=== PATIENT | female | born 1985 | race Caucasian/White ===

== ENCOUNTER 2020-03-13 10:29 | Outpatient (REF) | payer OTHER, SELFPAY ==
--- NOTE | 2020-03-13 10:37 | XR_ITS ---
EXAMINATION: XR SINUSES CLINICAL INFORMATION: Sinus pressure. COMPARISON: None. TECHNIQUE: 4 views of the sinuses were obtained. FINDINGS: The visualized paranasal sinuses and mastoid air cells appear clear. No associated air-fluid level. No lytic or blastic osseous lesion. No displaced fracture. No abnormal soft tissue calcification. XR/XR sinus min 3V IMPRESSION: Unremarkable examination.
== END 2020-03-13 10:30 | disposition home or self-care (01) ==
LOC: HO.XRAY 10:29
PROVIDERS: PCP Internal Medicine; Visit Provider Internal Medicine
DX: R51.9 Headache, unspecified (principal); J32.9 Chronic sinusitis, unspecified
CPT/HCPCS: 70220

== ENCOUNTER 2020-05-02 15:48 | Outpatient (REF) | payer OTHER, SELFPAY ==
[2020-05-02 16:20] LABS: MANUAL DIFF FLAG NO
[2020-05-02 16:27] LABS: Basophils Percent Auto 0.4 % (0-2); Eosinophils Absolute Auto 0.3 X10*3/uL (0.0-0.4); Eosinophils Percent Auto 3.8 % (0-4); Hematocrit 40.9 % (37-47); Imm Gran Abs Auto 0.01 X10*3/uL (0.00-0.03); Imm Gran Pct Auto 0.1 % (0.0-0.4); Lymphocytes Absolute Auto 2.7 X10*3/uL (1.2-4.9); Lymphocytes Percent Auto 34.8 % (20-40); Mean Corpuscular HGB Conc 34.2 g/dl (31.0-35.0); Mean Corpuscular Volume 90.7 fL (80-98); Mean Platelet Volume 10.6 fL (9.4-12.3); Monocytes Absolute Auto 0.5 X10*3/uL (0.1-1.2); Monocytes Percent Auto 6.1 % (2-11); Neutrophils Absolute Auto 4.2 X10*3/uL (2.0-8.3); Neutrophils Percent Auto 54.8 % (45-73); Platelet Count 279 X10*3/uL (160-400); Red Blood Count 4.51 X10*6/uL (4.20-5.50); Red Cell Distribution Width 12.8 % (11.0-16.0); White Blood Count 7.7 X10*3/uL (4.8-10.8)
[2020-05-02 16:56] LABS: Anion Gap 13 (12-20); Blood Urea Nitrogen 15 mg/dL (9-16); Calcium 10.2 mg/dL (8.4-10.2); Carbon Dioxide 24 mmol/L (22-29); Chloride 106 mmol/L (96-108); Cholesterol 169 mg/dL; Estimated Glomerular Filt Rate > 60; Glucose Random 81 mg/dL (60-115); Potassium 4.1 mmol/L (3.3-5.1); Sodium 139 mmol/L (135-145)
[2020-05-02 17:19] LABS: Vitamin D 25-OH Total 25.4 ng/mL (>30)
[2020-05-05 15:16] LABS: TS Negative Control Passed; TS Panel A 0; TS Panel B 2; TS Positive Control Passed; TSpotTB Negative (SeeBelow)
== END 2020-05-02 15:49 | disposition home or self-care (01) ==
LOC: HO.LAB 15:48
PROVIDERS: PCP Internal Medicine; Visit Provider Internal Medicine
DX: J45.909 Unspecified asthma, uncomplicated (principal); M85.80 Other specified disorders of bone density and structure, unspecified site; Z82.49 Family history of ischemic heart disease and other diseases of the circulatory system
CPT/HCPCS: 36415; 80048; 82306; 82465; 85025; 86481

== ENCOUNTER 2020-12-04 14:00 | Outpatient (REF) | payer OTHER, SELFPAY ==
[2020-12-04 14:14] LABS: IDNOW Serial# 08D9AD1C; Strep A Nucleic Acid Negative (Negative)
[2020-12-04 14:44] LABS: Influenza A PCR NEGATIVE (Negative); Influenza B PCR NEGATIVE (Negative); Resp Syncy Virus RNA Qual PCR NEGATIVE (Negative); SARS COV2 PCR INHOUSE NEGATIVE (Negative)
== END 2020-12-04 14:01 | disposition home or self-care (01) ==
LOC: HO.LNP 14:00
PROVIDERS: Visit Provider Internal Medicine
DX: J00 Acute nasopharyngitis [common cold] (principal); R51.9 Headache, unspecified; R19.7 Diarrhea, unspecified; Z20.822 Contact with and (suspected) exposure to COVID-19
CPT/HCPCS: 0241U; 87651

== ENCOUNTER 2021-05-06 12:20 | Outpatient (REF) | payer OTHER, SELFPAY ==
[2021-05-06 13:29] LABS: Influenza A PCR NEGATIVE (Negative); Influenza B PCR NEGATIVE (Negative); Resp Syncy Virus RNA Qual PCR NEGATIVE (Negative); SARS COV2 PCR INHOUSE NEGATIVE (Negative)
== END 2021-05-06 12:21 | disposition home or self-care (01) ==
LOC: HO.LNP 12:20
PROVIDERS: PCP Internal Medicine; Visit Provider Internal Medicine
DX: Z20.822 Contact with and (suspected) exposure to COVID-19 (principal); R05.9 Cough, unspecified; J45.909 Unspecified asthma, uncomplicated
CPT/HCPCS: 0241U

== ENCOUNTER 2021-07-24 08:10 | Outpatient (REF) | payer OTHER, SELFPAY ==
[2021-07-24 10:23] LABS: MANUAL DIFF FLAG NO
[2021-07-24 10:27] LABS: Basophils Percent Auto 0.4 % (0-2); Eosinophils Absolute Auto 0.3 X10*3/uL (0.0-0.4); Eosinophils Percent Auto 5.8 % (0-4); Hematocrit 38.8 % (37.0-47.0); Imm Gran Abs Auto 0.01 X10*3/uL (0.00-0.03); Imm Gran Pct Auto 0.2 % (0.0-0.4); Lymphocytes Absolute Auto 1.9 X10*3/uL (1.2-4.9); Lymphocytes Percent Auto 34.2 % (20-40); Mean Corpuscular HGB Conc 33.5 g/dl (31.0-35.0); Mean Corpuscular Hemoglobin 30.4 pg (27.0-33.0); Mean Corpuscular Volume 90.9 fL (80.0-98.0); Mean Platelet Volume 10.7 fL (9.4-12.3); Monocytes Absolute Auto 0.4 X10*3/uL (0.1-1.2); Neutrophils Percent Auto 52.4 % (45-73); Platelet Count 247 X10*3/uL (160-400); Red Blood Count 4.27 X10*6/uL (4.20-5.50); Red Cell Distribution Width 12.6 % (11.0-16.0); White Blood Count 5.7 X10*3/uL (4.8-10.8)
[2021-07-24 10:56] LABS: Anion Gap 9 (12-20); Blood Urea Nitrogen 12 mg/dL (9-16); Calcium 9.9 mg/dL (8.4-10.2); Carbon Dioxide 25 mmol/L (22-29); Chloride 109 mmol/L (96-108); Estimated Glomerular Filt Rate > 60; Glucose Random 85 mg/dL (60-115); Potassium 4.4 mmol/L (3.3-5.1); Sodium 139 mmol/L (135-145)
[2021-07-24 11:11] LABS: Vitamin D 25-OH Total 25.4 ng/mL (>30)
== END 2021-07-24 08:11 | disposition home or self-care (01) ==
LOC: HO.10HDL 08:10
PROVIDERS: Visit Provider Internal Medicine
DX: G43.909 Migraine, unspecified, not intractable, without status migrainosus (principal); J45.909 Unspecified asthma, uncomplicated; E55.9 Vitamin D deficiency, unspecified
CPT/HCPCS: 36415; 80048; 82306; 85025

== ENCOUNTER 2022-10-10 15:14 | Outpatient (REF) | payer OTHER, SELFPAY ==
--- NOTE | ~2022-10-10 | XR_ITS ---
EXAMINATION: XR SINUSES CLINICAL INFORMATION: Sinus pain and congestion COMPARISON: None available. TECHNIQUE: 4 views FINDINGS: Paranasal sinuses appear clear without air-fluid levels. No fractures are identified. No radiodense foreign bodies. XR/XR sinus min 3V IMPRESSION: Unremarkable examination.
== END 2022-10-10 15:15 | disposition home or self-care (01) ==
LOC: HO.XRAY 15:14
PROVIDERS: PCP Internal Medicine; Visit Provider Internal Medicine
DX: R09.81 Nasal congestion (principal); J34.89 Other specified disorders of nose and nasal sinuses; J45.909 Unspecified asthma, uncomplicated
CPT/HCPCS: 70220

== ENCOUNTER 2023-09-23 12:11 | Outpatient (REF) | payer OTHER, SELFPAY ==
[2023-09-23 13:21] LABS: MANUAL DIFF FLAG NO
[2023-09-23 13:47] LABS: Basophils Percent Auto 0.4 % (0-2); Eosinophils Absolute Auto 0.3 X10*3/uL (0.0-0.4); Eosinophils Percent Auto 4.1 % (0-4); Hematocrit 39.2 % (37.0-47.0); Hemoglobin 13.5 g/dl (12.0-16.0); Imm Gran Abs Auto 0.01 X10*3/uL (0.00-0.03); Imm Gran Pct Auto 0.1 % (0.0-0.4); Lymphocytes Absolute Auto 2.2 X10*3/uL (1.2-4.9); Mean Corpuscular HGB Conc 34.4 g/dl (31.0-35.0); Mean Corpuscular Hemoglobin 30.7 pg (27.0-33.0); Mean Corpuscular Volume 89.1 fL (80.0-98.0); Mean Platelet Volume 10.2 fL (9.4-12.3); Monocytes Absolute Auto 0.5 X10*3/uL (0.1-1.2); Monocytes Percent Auto 7.4 % (2-11); Neutrophils Absolute Auto 3.7 x10*3/uL (2.0-8.3); Platelet Count 258 X10*3/uL (160-400); Red Cell Distribution Width 12.7 % (11.0-16.0); White Blood Count 6.8 X10*3/uL (4.8-10.8)
[2023-09-23 13:50] LABS: Alanine Aminotransferase 9 U/L (0-31); Albumin Level 4.5 g/dL (3.5-5.0); Alkaline Phosphatase 41 U/L (39-117); Anion Gap 10 (12-20); Aspartate Amino Transferase 13 U/L (5-31); Bilirubin Total 0.7 mg/dL (0.0-1.0); Blood Urea Nitrogen 12 mg/dL (9-16); Calcium 9.6 mg/dL (8.4-10.2); Carbon Dioxide 25 mmol/L (22-29); Chloride 108 mmol/L (96-108); Estimated Glomerular Filt Rate > 60; Glucose Random 89 mg/dL (60-115); Potassium 4.5 mmol/L (3.3-5.1); Sodium 138 mmol/L (135-145); Total Protein 7.8 g/dL (6.5-8.0)
[2023-09-23 14:18] LABS: Uric Acid 2.9 mg/dL (2.4-5.7)
== END 2023-09-23 12:12 | disposition home or self-care (01) ==
LOC: HO.10HDL 12:11
PROVIDERS: Visit Provider Internal Medicine
DX: J45.909 Unspecified asthma, uncomplicated (principal); R21 Rash and other nonspecific skin eruption; Z87.442 Personal history of urinary calculi
CPT/HCPCS: 36415; 80053; 84550; 85025; 86140

== ENCOUNTER 2023-12-16 14:07 | Outpatient (REF) | payer OTHER, SELFPAY ==
--- NOTE | ~2023-12-16 | XR_ITS ---
EXAMINATION: XR CHEST CLINICAL INFORMATION: Cough. Asthma. COMPARISON: None available. TECHNIQUE: 2 views of the chest were obtained. FINDINGS: Lungs clear. No pleural effusions. Heart and pulmonary vessels normal. XR/XR chest 2V IMPRESSION: No active disease. Electronically signed by: Nba Moyer MD 12/16/2023 05:39 PM [facility]
[2023-12-16 15:05] LABS: Influenza A PCR NEGATIVE (Negative); Influenza B PCR NEGATIVE (Negative); Resp Syncy Virus RNA Qual PCR NEGATIVE (Negative); SARS COV2 PCR INHOUSE NEGATIVE (Negative)
== END 2023-12-16 14:08 | disposition home or self-care (01) ==
LOC: HO.XRAY 14:07
PROVIDERS: PCP Internal Medicine; Visit Provider Internal Medicine
DX: R05.9 Cough, unspecified (principal); J45.909 Unspecified asthma, uncomplicated; R50.9 Fever, unspecified
CPT/HCPCS: 0241U; 71046

== ENCOUNTER 2024-06-08 08:18 | Outpatient (AMB) | payer OTHER, SELFPAY ==
--- NOTE | 2024-06-08 08:25 | MHC.OFFVIS ---
Vital Signs 06/08/24 08:27 Height 5 ft 6 in Weight 139 lb BMI 22.4 Intake Visit Reasons: PCT: RT thumb sprain DOI 10/24/23 Intake Note: Ashley is a 39 year old right hand dominant female who resents today for a new patient for evaluation of right thumb pain. Patient reports she was playing basketball with her son on 10/24/23 when she injured the right thumb. Patient was treated at [facility] for this non operatively. MRI done at [facility]. She completed 6 weeks of casting in a thumb spica cast and was transitioned into a removable splint then referred to occupational therapy. Currently her tenderness is located on the right radial aspect. No numbness or tingling. She has completed OT. MR HAND WITHOUT CONTRAST RIGHT DOS: 11/09/2023 IMPRESSION: High-grade partial tear at the proximal radial collateral ligament at the first MP articulation. There is also attenuation of the ulnar collateral ligament consistent with the sequela of prior tear, age indeterminant. Allergies aspirin Allergy (Unknown, Verified 06/08/24 08:28) swelling penicillin V Allergy (Unknown, Verified 06/08/24 08:28) rash seafood Allergy (Unknown, Uncoded 06/08/24 08:28) rash, swelling HPI HPI PCT: RT thumb sprain DOI 10/24/23: Details: Ashley is a 39 year old right hand dominant woman who presents with complaints of right thumb pain. She sprained her right thumb MCP joint playing Basketball, DOI: 10/24/23. This was managed at [facility] with a cast and several weeks of OT hand therapy. She complains of pain in the radial aspect of her thumb, worse with repetitive use. She also complains of swelling in her thumb with use. 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, right hand dominant Review of Systems Const All systems reviewed & are unremarkable except as noted in HPI and below Physical Exam Vital Signs: BMI result Body Mass Index 22.4 Const General: cooperative, healthy appearing and no acute distress Orientation/consciousness: patient oriented x3 HEENT Head: Yes normocephalic and Yes atraumatic Eyes EOM: EOMs intact bilaterally Resp Effort & Inspection: normal respiratory effort and able to speak in complete sentences Cardio Jugular venous distension: no JVD Skin General skin exam: turgor normal Rashes: no rashes Neuro General: patient oriented x3 Extrem Other: Evaluation of Right Upper Extremity: The patient is alert, oriented, and in no acute distress Neuro: Median, Ulnar, Radial nerves motor and sensory intact and sensation is normal to the tips of all digits Vascular: Cap refill brisk ROM: She can make a fist and extend all her digits She could oppose her thumb to all digits MCP joint stable on exam UCL & RCL of the MCP joint are intact, with good end points Similar to opposite, uninjured thumb Skin: No lacerations or abrasions. General: No Ecchymosis. No Erythema or evidence of infection. She demonstrates her tenderness over the radial aspect of the metacarpal, extending over the MCP joint and to the IP joint & radial aspect of the thenar mass Radiographs: 3 views of the right hand were taken and viewed by me today in clinic. They show no fractures or dislocations. Regarding the thumb, the CMC, MCP, and IP joints all well-aligned, with no arthritic changes. Psych Appearance: grossly normal Affect: normal affect Attitude: cooperative Assessment & Plan Assessment & Plan (1) Rupture of radial collateral ligament of right thumb: Code(s): S63.641A - Sprain of metacarpophalangeal joint of right thumb, initial encounter Category: Medical (2) Pain of right thumb: Code(s): M79.644 - Pain in right finger(s) Category: Medical Plan Assessment & Plan: 1. Right RCL partial tear From a Basketball injury, DOI: 10/24/23 Managed by AMY, who recommended surgery, which she declined & this was managed in a cast She has good ROM & no instability 2. Right radial thumb pain Etiology unclear I educated her about these conditions I discussed non-operative treatment options No operative intervention indicated, I recommend OT hand therapy & activity modification I discussed activity modifications, I recommend she work on ROM & using her hand for more lightweight daily activities I ordered OT hand therapy to work on strengthening & normalizing function She will follow up in 6-8 weeks to see how she is doing. Please note that greater than 30 minutes was spent with this patient going over the history, evaluating the patient and radiographs, formulating possible treatment options, discussing them with the patient, and documenting the visit. Scribed for Carmela Gerard MD by Paulo Ramírez, bacteriologist medical, on 06/08/24 at 8:45 AM, EST. Orders: Orders XR hand RT min 3V 06/08/24 M79.641 - Pain in right hand OT Evaluation and Treatment 06/08/24 M79.644 - Pain in right finger(s), S63.641A - Sprain of metacarpophalangeal joint of right thumb, initial encounter Coding Level of Care Code New Pt Level 3 (29363) Diagnoses Rupture of radial collateral ligament of right thumb S63.641A Pain of right thumb M79.644
[2024-06-08 08:27] VITALS: BMI 22.4
--- OUTSIDE RECORDS SUMMARY | 2024-06-08 08:31 | XMS_ITS | Data Portability ---
Author Organization [facility], [facility] Address [address] [place] [address] Care Team Providers Care Lead Pharmacy Technician Name Role Phone VICTORIANOYUMIKO GALLARDO Primary Care Provider [phone] Assessment Encounter Date Assessment Date Assessment LastModified by Organization Details LastModified Time 11/02/2023 11/02/2023 Assessment: Righ t thumb MCP joint acute injury with concern for radial collateral ligament injury on clinical exam Plan: MRI is ordered to confirm diagnosis of radial collateral ligament injury. Thumb spica splint is applied by myself in the cast room today. Follow-up will be scheduled after the MRIs been performed so we can review the results together. gilberto Not available 11/02/2023 21:27:40 11/11/2023 11/11/2023 Assessment: Righ t thumb MCP joint acute injury with concern for radial collateral ligament injury on clinical exam, confirmed to be a high-grade partial injury on MRI Plan: I had a long discussion with the patient today regarding the findings on her exam and her imaging and her treatment options for this problem. Her preference is to avoid surgical treatment and therefore, she will be treated in a cast. She does understand that if after cast treatment and rehab, she has continued challenges with pain or instability, a subsequent surgery could be performed which would be a reconstructive seizure with an internal brace as opposed to a primary repair. We have discussed the treatment options thoroughly and she has elected to proceed with cast treatment. Thumb spica cast hand-based to the base of the thumbnail will be applied in the [place] cast room. Follow-up as scheduled with me in 1 month but she may need interval cast changes. gilberto Not available 11/11/2023 12:37:28 12/23/2023 12/23/2023 Assessment: Dianne calixto thumb MCP joint sprain Plan: She has now completed 6 weeks of casting. She will be transition into a removable splint. She is provided an OT prescription for rehab protocol range of motion and then progressive strengthening when appropriate. Follow-up as scheduled with me in about 6 weeks. gilberto Not available 12/23/2023 12:15:16 02/05/2024 02/05/2024 Assessment: Dianne calixto thumb MCP joint sprain, RCL sprain with endpoint on exam Plan: She is provided an updated OT prescription for rehab protocol range of motion, wean out of splint and then progressive strengthening when appropriate. Follow-up as scheduled with me in about 6 weeks. We have briefly discussed the possibility of the surgical procedure that could be performed in the future if she continues to have challenges with pain, however I would be surprised if this is required based on her clinical and radiographic examinations. gilberto Not available 02/05/2024 09:43:16 Plan of Treatment Reminders Order Date Submit Date Provider Last Modified By Organization Details Last Modified Time Details Appointments None recorded. Lab None recorded. Referral occupatio nal therapist referral - DIAGNOSIS : sprain thumb, metacarpo phalangea l joint, radial collatera l ligament ( RIGHT SIDE ) TREATMENT : DAIN OFF SPLINT, BEGIN STREGTHEN ING 2023 lester [facility] - [place] [address] [address], [address], [place], [address], 5 15:55:37 occupatio nal therapist referral - RIGHT THUMB MCP SPRAIN/ CUSTOM HAND BASED THUMB SPICA ORTHOSIS 2023 024 lester Not available 09:17:53 Procedures None recorded. Surgeries None recorded. Imaging XR, finger(s) , 2 or more view - pt in room 5 pt needs 3 views right thumb 2023 lester Dan, [address], [address], [place], [address], 4 07:56:13 MRI, finger(s) , w/o contrast - mri right thumb no contrast to eval rcl injury 2023 024 [email or web address] [facility] [place], [address] [facility] [address], [place], [address], 07:56:13 Medication Orders None recorded. Patient TargetsNo targets recorded. Patient Instructions Encounter Date Encounter Id Patient Instructions Last Modified By Organization Details Last Modified Time 11/02/2023 [id number] application of splint, short arm* - short arm thumb spica splint rt [email or web address] Not available 12/03/2023 08:05:54 12/23/2023 [id number] application of cast, thumb spica* - RIGHT THUMB THUMB SPICA SPLINT [email or web address] Not available 12/23/2023 12:11:16 cast removal* - rm 114 cast off [email or web address] Not available 12/23/2023 12:11:16 Reason for Referral Occupational Therapist Refer ral for Sprain of ligament of right thumb RIGHT THUMB MCP SPRAIN/ CUSTOM HAND BASED THUMB SPICA ORTHOSIS Referring Physician: Alycia Oh, Orthopedic Surgery, Encounter Date: 12/23/2023 Occupational Therapist Refer ral for Sprain thumb, metacarpophalangeal joint, radial collateral ligament DIAGNOSIS: sprain thumb, metacarpophalangeal joint, radial collateral ligament ( RIGHT SIDE ) TREATMENT: DAIN OFF SPLINT, BEGIN STREGTHENING Referring Physician: Alycia Oh, Orthopedic Surgery, Encounter Date: 02/05/2024 Results Created Date Observation Date Name Description Value Unit Range Abnormal Flag Note LastModifiedBy Organization Detail LastModifiedTime 11/02/19 24 11/02/2023 XR, finge r(s), 2 or more view [email or web address]:/ [email or web address] ?Encry pted=s hAaTro YD8dLq bEUv6g %2BXZw aYqtaq 0bqfl% 2Fg9IQ a4ajBk vP9nXo QUaueC m3YtLR FvZlgJ JJ8mAn HZtai3 3m3263 AC0Kqa nqHV6K hKiQtr MwF INTERFACE [facility] [address], [place], [address], 11/02/2023 09:30:57 11/02/19 24 11/02/2023 XR, finge r(s), 2 or more view [email or web address] ?Encry pted=s hAaTro YD8dLq bEUv6g %2BXZw aYqtaq 0bqfl% 2Fg9IQ a4ajBk vP9nXo QUaueC m3YtLR FvZlgJ JJ8mAn HZtai3 3h1528 AC0Kqa nqHV6K hKiQtr MwF INTERFACE [facility] [address], [place], [address], 11/02/2023 09:31:01 11/10/19 24 11/09/2023 MRI, hand, w/o contr ast No observ ation record ed. [email or web address] [facility] [place] [address] [facility] [address], [place], [address], 11/10/2023 14:17:44 Result Notes None recorded. Procedures Surgical History Date Name Laterality Status Provider Name and Address Organization Details Recorded Time 11/11/2023 Cast_Thumb Spica_11+ completed TIERA TAM [place] [facility] 11/11/2023 13:20:53 Imaging Results Imaging Date Name Status LastModified by Organiz ation Details LastModified Time 11/02/2023 XR, finger(s), 2 or more view completed INTERFACE [facility] [address], [place], [address], 11/02/2023 09:30:57 11/02/2023 XR, finger(s), 2 or more view completed INTERFACE [facility] [address], [place], [address], 11/02/2023 09:31:01 11/09/2023 MRI, hand, w/o contrast completed [email or web address] [facility] [place] [address] [facility] [address], [place], [address], 11/10/2023 14:17:44 Procedure Notes None recorded. Medical Equipment None Reported. Allergies Allergen ID Allergen Name Allergen Category Reaction Reaction Severity Criticality Documentation Date Start Date Code Code System Note Provider Name and Address Organization Details Recorded Time 784658 aspirin medicatio n swelling Not available Not available 02/05/2024 1191 RxNorm ashli chano noyola [facility] 4 09:26:03 [id number] Penicilli n Not available rash Not available Not available 02/05/2024 11819 RxNorm ashli chano noyola [facility] 4 09:26:03 Medications Name Sig Start Date Stop Date Status Note LastModified by Organization Details LastModified Time prednisone 10 mg tablet PLEASE SEE ATTACHED FOR DETAILED DIRECTION S active Not Available Not Available No t Available clindamycin HCl 300 mg capsule TAKE 1 CAPSULE BY MOUTH TWICE A DAY FOR 10 DAYS 11/10 completed Not Available Not Available Not Available albuterol sulfate 2.5 mg/3 mL (0.083 %) solution for nebulizatio n TAKE 1 VIAL USING NEBULIZER BY MOUTH EVERY 4-6 HOURS active Not Available Not Available No t Available azithromyci n 250 mg tablet TAKE 1 TABLET BY MOUTH EVERY DAY active Not Available Not Available No t Available prednisone 20 mg tablet TAKE 1 TABLET BY MOUTH EVERY DAY active Not Available Not Available No t Available meloxicam 7.5 mg tablet TAKE 1 TABLET BY MOUTH EVERY DAY active Not Available Not Available No t Available lidocaine 5 % topical patch APPLY 1 PATCH TOPICALLY OCNE DAILY PER PACKAGE DIRECTION S active Not Available Not Available No t Available Advair Diskus 250 mcg-50 mcg/dose powder for inhalation INHALE 1 PUFF(S) BY MOUTH TWICE A DAY active Not Available Not Available No t Available ibuprofen 600 mg tablet TAKE 1 TABLET BY MOUTH EVERY 6 HOURS FOR 5 DAYS active Not Available Not Available No t Available levonorgest rel 0.15 mg-ethinyl estradiol 30 mcg tablets,3 mos pack(91) TAKE 1 TABLET BY MOUTH DAILY active Not Available Not Available No t Available EC-Naproxen 500 mg tablet,patsy yed release TAKE 1 TABLET BY MOUTH TWICE A DAY active Not Available Not Available No t Available Vitals Date Recorded Body height Body mass index (BMI) Body weight Provider Name and Address Organization Details Last Updated DateTime 11/02/2023 167.64 cm 22.3 kg/m2 69272.75 g JAMIE SHELTON [facility] 11/02/2023 09:25:18 Date Recorded Body height Body mass index (BMI) Body weight Provider Name and Address Organization Details Last Updated DateTime 11/11/2023 167.64 cm 22.3 kg/m2 70774.75 g Kaylyn tony [facility] 11/11/2023 11:46:29 Date Recorded Body height Body mass index (BMI) Body weight Provider Name and Address Organization Details Last Updated DateTime 12/23/2023 167.64 cm 22.3 kg/m2 45269.75 g MONIQUE MOODY [facility] 12/23/2023 11:32:09 Date Recorded Body height Body mass index (BMI) Body weight Provider Name and Address Organization Details Last Updated DateTime 02/05/2024 165.1 cm 23 kg/m2 85537.75 g ashli madden [facility] 02/05/2024 09:24:22 Social History None recorded. Functional Status None recorded. Mental Status None recorded. Family History Nothing Reported. Medical History No medical history recorded. Gynecological HistoryNo gynecological history recorded. Obstetrics History GPAL:G 0 P 0 0 0 0 Past Encounters Encounter ID Performer Location Encounter Start Date Encounter Closed Date Diagnosis/Indication Diagnosis SNOMED-CT Code Diagnosis ICD10 Code Diagnosis Note [id number] Alycia cannon MD [address] [place] [address] 11/02/2023 09:10:44 11/12/2023 07:56:12 Pain in right hand 3011513864 98468 M79.641 Sprain peace mccormick, metacarpophalangeal joint, radial collateral ligament 615697439 S63.641A [id number] Alycia cannon MD [facility] [address] [place] [address] 11/11/2023 11:11:43 11/26/2023 15:42:37 Pain in right hand [id number] [facility] M79.641 Sprain peace mb, metacarpophalangeal joint, radial collateral ligament 639869830 S63.641A [id number] [facility] [address] [place] [address] 11/11/2023 13:05:49 11/11/2023 13:22:08 Pain in right hand 6152625200 [facility] M79.172 [id number] MD Kamar Stewart[facility]vin [address] [place] [address] 12/23/2023 10:59:42 01/12/2024 09:17:52 Pain in right hand 1224207140 [facility] M79.641 Sprain peace mb, metacarpophalangeal joint, radial collateral ligament 336443980 S63.641A Sprain of ligament of right thumb 2877904826 1808791 S63.681A [id number] Alycia cannon MD [facility] [address] [place] [address] 02/05/2024 09:16:27 02/24/2024 15:55:37 Pain in right hand 9729970994 26950 M79.641 Sprain peace mb, metacarpophalangeal joint, radial collateral ligament 550430348 S63.641A Sprain of ligament of right thumb 5927689586 6735462 S63.681A Health Concerns Section Related Observation LastModified by Organization Detai ls LastModified Time None Recorded Concern Status LastModified by Organization Details LastModified Time None Recorded Advance Directives Directive None Recorded Payers Encounter Date Sequence Insurance Name Policy Number Policy Fair Covered Member ID Fair Member ID Guarantor Name 11/02/2023 1 [facility] NET PLAN (MEDICAID HMO) [id number] Ashley Plata [id number] Ashley Plata 11/11/2023 1 [facility] NET PLAN (MEDICAID HMO) [id number] Ashley Plata [id number] Ashley Plata 11/11/2023 1 [facility] NET PLAN (MEDICAID HMO) [id number] Ashley Plata [id number] Ashley Plata 12/23/2023 1 [facility] PL[facility] (MEDICAID HMO) [id number] Ashley Plata [id number] Ashley Plata 02/05/2024 1 [facility] (MEDICAID HMO) [id number] Ashley Plata [id number] Ashley Plata Notes Date Note Type Note Provider Name and Address Organization Details Recorded Time 11/02/2023 text/html 38 yo female seen for initial eval of R thumb pain, she sustained an injury to the right thumb while playing basketball with her teenage son on 10/24/2023. X-rays were done at an outside facility which were read as negative. She was not placed in a splint. She has had swelling and bruising and pain in the right thumb since the injury occurred. Alycia Oh MD [address] [facility], [place], [address], [facility] 11/02/2023 21:28:29 11/11/2023 text/html 38 yo female seen for f/u eval of R thumb pain, she sustained an injury to the right thumb while playing basketball with her teenage son on 10/24/2023. X-rays were done at an outside facility which were read as negative. She is seen today to review the results of MRI performed to assess for collateral lig injury. She reports that the splint that I applied for her last week, gave her some pain control but that that splint was thrown away when she presented for her MRI. Alycia Oh MD [address], [place], [address], [facility] 11/11/2023 12:37:50 12/23/2023 text/html 38 yo female seen for f/u eval of R thumb pain, she sustained an injury to the right thumb while playing basketball with her teenage son on 10/24/2023. X-rays were done at an outside facility which were read as negative. She has now completed 6 weeks of casting. Alycia Oh MD [address], [place], [address], [facility] 12/23/2023 12:15:37 02/05/2024 text/html 38 yo female seen for f/u eval of R thumb pain, she sustained an injury to the right thumb while playing basketball with her teenage son on 10/24/2023. X-rays were done at an outside facility which were read as negative. She completed 6 weeks of casting. Is now in a custom splint, going to OT once weekly, still having some challenges with pain. She has been taking the splint off a little bit when she is home. Indicates that the pain is similar whether she is wearing the splint or not. She started therapy about 4 weeks ago and has been going 1-2 times per week. They have not yet started strengthening. Alycia Oh MD [address] [place] [address] [address], [place], [address], [facility] 02/05/2024 10:23:17 OBGyn Episode No OBEpisode recorded.
--- OUTSIDE RECORDS SUMMARY | 2024-06-08 08:31 | XMS_ITS | Clinical Summary ---
Author Organization [facility] Address [address] [place] [address] Care Team Providers Care Cray Fishing Hand Name Role Phone Rodolfo Alexandra MD Primary Care Provider [phone] Surgical History Surgery Date Site/Laterality Comments SECTION PROCEDURE: HISTORICAL DELIVERY Medical History Medical History Date Comments MRSA infection 2008 DX:MRSA infectio n; COMMENT: breast left Migraine headache without aura D X:Migraine headache without aura Family History Medical History Relation Name Comments No Known Problems Brother x2 Arthritis Mother Other: Cancer of reproductiv e organs Mother pt not sure of origi n of cancer No Known Problems Paternal Grandfather Other: Heart Attack Paternal Grandmother No Known Problems Sister x3 Other: autism Son Luis Alfredo on med Breast cancer Neg Hx Ovarian cancer Neg Hx Relation Name Status Comments Brother x2 Alive Father Alex Alive Mother Alive Paternal Grandfather Alive Paternal Grandmother Sister x3 Alive Son Luis Alfredo Alive Social History Tobacco Use Types Packs/Day Years Used Date Smoking Tobacco: Never Smokeless Tobacco: Never Alcohol Use Standard Drinks/Week Comments No 0 (1 standard drink = 0.6 oz pur e alcohol) Comments Unknown Sex and Gender Information Value Date Recorded Sex Assigned at Not on file Legal Sex Female 2:18 PM EST Gender Identity Not on file Sexual Orientation Not on file Obstetrics History Last Filed Vital Signs Vital Sign Reading Time Taken Comments Blood Pressure 102/68 04/14/2023 9:12 AM EST Pulse 91 03/10/2023 8:48 AM EST Temperature - - Respiratory Rate - - Oxygen Saturation - - Inhaled Oxygen Concentration - - Weight 70.1 kg (154 lb 9.6 oz) 04/14/2023 9:12 A M EST Height 162.6 cm (5' 4 ) 04/14/2023 9:12 AM EST Body Mass Index 26.54 04/14/2023 9:12 AM EST Plan of Treatment Health Maintenance Due Date Last Done Comments DTaP,Tdap,and Td Vaccines (1 - Tdap) 2006 Hepatitis B Vaccines (1 of 3 - 19+ 3-dose series) 2006 Depression Screening 01/18/2022 HIV Screening 01/18/2022 Hepatitis C Screening 01/18/2022 Social Influencers of Health Screening 01/18/2022 COVID-19 Vaccine (3 - 2023-2 5 season) 2023 10/10/2020, 09/11/2020 Influenza Vaccine (Season Ended) 2024 Cervical Cancer Screening: P ap Smear 06/11/2025 06/11/2022, 12/07/2019 HIB Vaccines Aged Out No longer eligi ble based on patient's age to complete this topic HPV Vaccines Aged Out No longer eligi ble based on patient's age to complete this topic Hepatitis A Vaccines Aged Out No long er eligible based on patient's age to complete this topic IPV Vaccines Aged Out No longer eligi ble based on patient's age to complete this topic MMR Vaccines Aged Out No longer eligi ble based on patient's age to complete this topic Meningococcal ACWY Vaccine Aged Out N o longer eligible based on patient's age to complete this topic Meningococcal B Vaccine Aged Out No l onger eligible based on patient's age to complete this topic Pneumococcal Vaccine: Pediatrics (0 to 5 Years) and At-Risk Patients (6 to 64 Years) Aged Out No longer eligible b ased on patient's age to complete this topic RSV Immunization Patients Under 20 months Aged Out No longer eligible b ased on patient's age to complete this topic Varicella Vaccines Aged Out No longer eligible based on patient's age to complete this topic Procedures Procedure Name Priority Date/Time Associated Diagnosis Comments PAP SMEAR Routine 06/11/2022 from Last 3 Months or Most Recently Relevant to Health Maintenance Results * Pap smear (06/11/2022) 06/11/2022 Narrative HISTORICAL TESTING LAB RESULTING AGENCY - 06/16/2022 10:50 AM EDT [id number] THINPREP PAP, IMAGED: NEGATIVE FOR SQUAMOUS INTRAEPITHELIAL LESION AND MALIGNANCY . ABUNDANT RED BLOOD CELLS ARE PRESENT. RIVER AGUILA(ASCP) (CASE ELECTRONICALLY SIGNED 06 16 2022) RESULT OF APTIMA HIGH RISK HPV ASSAY: HIGH RISK HPV: ??NEGATIVE (SEROTYPES 16,18,31,33,35,39,45,51,52,56,58,59,66,68) COMPLETED ON 2022-06-12 ADEQUACY: SATISFACTORY ENDOCERVICAL/TRANSFORMATION ZONE COMPONENT PRESENT. SOURCE: THINPREP PAP HPV ANY DX: ??REFLEX 16 AND 18, CERVICAL, IMAGED CLINICAL INFORMATION: HPV ANY DIAGNOSIS. HORMONES, PAP HX NEG 2019, [Z01.419] Cherise De [facility] CYTOLOGY ORDERABLES Final Result HISTORICAL TESTING LAB RESULTING AGENCY from Last 3 Months or Most Recently Relevant to Health Maintenance Care Teams Cray Fishing Hand Relationship Specialty Start Date End Date Rodolfo Alexanrda MD [address] [place] [address] Dr Kristina MA PCP - General Internal Medicine 10/27/18
== END 2024-06-08 09:20 | disposition home or self-care (01) ==
LOC: HO.HOS 08:19
PROVIDERS: PCP Internal Medicine; Visit Provider Orthopaedic Surgery
DX: S63.641A Sprain of metacarpophalangeal joint of right thumb, initial encounter (principal)
CPT/HCPCS: 99203

== ENCOUNTER 2024-06-08 08:18 | Outpatient (REF) | payer OTHER, SELFPAY ==
--- NOTE | ~2024-06-08 | XR_ITS ---
CLINICAL HISTORY: M79.641 - Pain in right hand --- Additional Notes or Special Instructions: jaz mccormick 3 view right hand Comparison: None Findings: Bones intact. No dislocations. No significant arthritic change. No erosions. No radiopaque foreign body. IMPRESSION: 1. No acute findings This document has been electronically signed by: Luis Alfredo Navarro MD on 06/10/2024 08:52:06
== END 2024-06-08 08:19 | disposition home or self-care (01) ==
LOC: HO.HOSX 08:18
PROVIDERS: PCP Internal Medicine; Visit Provider Orthopaedic Surgery
DX: S63.641A Sprain of metacarpophalangeal joint of right thumb, initial encounter (principal); M79.641 Pain in right hand
CPT/HCPCS: 73130; 99202

== ENCOUNTER → 2024-06-08 08:33 | Outpatient (BNV) | payer OTHER, SELFPAY | PROVIDERS: PCP Internal Medicine; Visit Provider Specialist | DX: M79.641 Pain in right hand (principal) | CPT/HCPCS: 73130 ==

== ENCOUNTER 2024-06-27 12:52 | Outpatient (AMB) | payer OTHER, SELFPAY ==
--- NOTE | 2024-06-27 13:02 | MHC.PC.OV ---
Vital Signs 06/27/24 13:07 Height 5 ft 6 in Weight 64.41 kg BMI 22.9 BP 114/80 Pulse 20 L Pulse Source Pulse Oximeter Temp 98.9 F Temp Source Temporal Artery Scan Pulse Oximetry (%) 98 Oxygen Delivery Method Room Air Intake Visit Reasons: URI sx Measurement Advisor Required: No Accompanied by: Self / Same As Patient Allergies aspirin Allergy (Unknown, Verified 06/27/24 13:06) swelling penicillin V Allergy (Unknown, Verified 06/27/24 13:06) rash shellfish derived Allergy (Verified 06/27/24 13:06) Anaphylaxis seafood Allergy (Unknown, Uncoded 06/27/24 13:06) rash, swelling Medication List - Last Reconciled 06/27/24 by TODD Britton albuterol sulfate mg inhalation albuterol sulfate 90 mcg/actuation (Ventolin HFA) 2 puffs inhalation Q6H PRN prednisone 40 mg (2 x 20 mg) PO DAILY HPI HPI Comments History of Present Illness Details 39-year-old female with history of mild intermittent asthma presents to the office today for evaluation of upper respiratory symptoms that have been ongoing for the last 2 days. She states that she has had fevers from 100-101 with associated sweats and chills. She states initially there was a sore throat that has now resolved. She continues to experience rhinorrhea with green drainage and productive cough with brown sputum production and a sinus headache. She does also have wheezing, pleuritic chest pain, and some dyspnea on exertion. Denies any known sick contacts. She has been requiring the use of her albuterol inhaler every 6 hours. Typically she uses this less than 3 times weekly. Has never required hospitalization for her asthma. No recent exacerbations. General: see hpi HEENT: see hpi. No sore throat, ear pain Cardiovascular: No chest pain, palpitations, or leg edema Respiratory: Nsee hpi GI: No abdominal pain, nausea, vomiting, diarrhea, constipation, melena, hematochezia : No dysuria, hematuria, increased urinary frequency, decreased urinary output MSK: No myalgia, back pain Neuro: No headaches, weakness, paresthesias Skin: No rashes or lesions Constitutional - Awake and Alert, No apparent distress Eyes - PERRLA, EOMI Nose - septum midline. Boggy turbinates with yellow mucus noted Mouth - posterior oropharynx normal, no tonsillar edema or exudates Neck - supple, no adenopathy Ears - External ears normal, R canal with erythema no edema and TM pearly dc with good cone of light. L canal clear, TM in tact, pearly dc with good cone of light Cardiovascular - S1S2, RRR, No edema Respiratory - Normal lung expansion, Normal respiratory effort, No respiratory distress, faint expiratory wheezing throughout, good air movement. 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, right hand dominant Physical exam (Primary Care) Vital Signs: Last Vital Signs Temp 98.9 F 06/27/24 13:07 Pulse 20 L 06/27/24 13:07 BP 114/80 06/27/24 13:07 Pulse Ox 98 06/27/24 13:07 Oxygen Delivery Method Room Air 06/27/24 13:07 BMI result Body Mass Index 22.9 Tobacco/Smoking Status: Tobacco use Status Patient Tobacco Use Status Never used Tobacco 06/27/24 13:09 Coding Level of Care Code Tele New Pt Level 3 (54353) Diagnoses URI (upper respiratory infection) J06.9 Asthma exacerbation J45.901 Assessment & Plan Assessment & Plan (1) URI (upper respiratory infection): Code(s): J06.9 - Acute upper respiratory infection, unspecified Category: Medical Plan: Counseled on self limited nature of viral illness. Declines testing for covid/flu/RSV. Continue with symptomatic management, increased fluids, hot steam showers, tylenol/ibuprofen prn for fevers. Low suspicion for bacterial infection, abx not indicated at this time. (2) Asthma exacerbation: Code(s): J45.901 - Unspecified asthma with (acute) exacerbation Category: Medical Plan: Prednisone 40mg daily x 5 days prescribed. Counseled on dosing and side effects. Can continue using albuterol inhaler as needed for sob/wheezing and cough. Symptomatic management as above. Plan Prednisone x5 days and albuterol as needed. Symptomatic management Medications: New prednisone 40 mg (2 x 20 mg) PO DAILY 10 tabs 0RF albuterol sulfate 90 mcg/actuation (Ventolin HFA) 2 puffs inhalation Q6H PRN 8.5 grams 1RF shortness of breath or wheezing
--- OUTSIDE RECORDS SUMMARY | 2024-06-27 13:03 | XMS_ITS | Clinical Summary ---
Author Organization [facility] Address [address] [place] [address] Care Team Providers Care Hat Mender Name Role Phone Rodolfo Alexandra MD Primary Care Provider [phone] Surgical History Surgery Date Site/Laterality Comments SECTION [...] 04/14/2023 9:12 AM EST Plan of Treatment Upcoming Encounters Date Type Department Care Team (Late st Contact Info) Description 09/14/2024 8:40 AM EDT Office Visit Obstetrics & Gynecology - [address] [address] Cherise De, CNM [address] [place] [address] Health Maintenance Due Date Last Done Comments [...] RESULTING AGENCY - 06/16/2022 10:50 AM EDT [id number] THINPREP PAP, IMAGED: NEGATIVE FOR SQUAMOUS INTRAEPITHELIAL [...] PAP HX NEG 2019, [Z01.419] Cherise De [facility] CYTOLOGY ORDERABLES Final Result HISTORICAL TESTING LAB RESULTING AGENCY from Last 3 Months or Most Recently Relevant to Health Maintenance Insurance [facility] Care Teams Hat Mender Relationship Specialty Start Date End Date Rodolfo Alexandra MD [address] [place] [address] Dr Kristina MA PCP - General Internal Medicine 10/27/18
[2024-06-27 13:07] VITALS: BP 114/80; PULSE 20; TEMP 37.2; O2SAT 98; BMI 22.9
== END 2024-06-27 13:55 | disposition home or self-care (01) ==
LOC: HO.HMCHD 12:52
PROVIDERS: PCP Internal Medicine; Visit Provider Physician Assistant
DX: J06.9 Acute upper respiratory infection, unspecified (principal); J45.901 Unspecified asthma with (acute) exacerbation

== ENCOUNTER → 2024-06-27 12:52 | Outpatient (BNVA) | payer OTHER, SELFPAY | PROVIDERS: PCP Internal Medicine; Visit Provider Physician Assistant | DX: J06.9 Acute upper respiratory infection, unspecified (principal); J45.901 Unspecified asthma with (acute) exacerbation | CPT/HCPCS: 99212 ==

== ENCOUNTER 2024-07-25 11:51 | Outpatient (REF) | payer OTHER, SELFPAY | END 2024-07-25 11:52 | disposition home or self-care (01) | LOC: HO.HOSX 11:51 | PROVIDERS: Visit Provider Orthopaedic Surgery | DX: Z13.89 Encounter for screening for other disorder (principal) ==